=== PATIENT | female | born 1975 | race Hispanic/Latino ===

== ENCOUNTER 2016-05-05 20:28 | Emergency (ER) | payer SELFPAY ==
[2016-05-05 20:48] VITALS: BP 155/112
[2016-05-05] MEDS ORDERED: NORCO 5/325 PO ONE (23:43)
[2016-05-05] MEDS ORDERED: TRIMOX PO ONE (23:44)
--- NOTE | 2016-05-05 23:48 | Emergency Department Report ---
ED ENT HPI - General Chief complaint: Dental/Oral Stated complaint: TOOTHACHE/ARIAS/JAW PAIN Time Seen by Provider: 05/05/16 23:34 Source: patient Mode of arrival: Ambulatory Limitations: No Limitations - History of Present Illness Initial comments: PT c/o toothache x 3 days. PT state due to her gastric bypass and malabsorbtion , she has lots of cavities. Pt states she is getting implants. PT states 3 days ago, she was eating peppermint and he broke off part of her tooth. PT c/o L upper toothache, arias, and ear pain MD complaint: tooth pain Onset/Timin -: Gradual, days(s) Location: tooth # (10 or 11) Quality: stabbing Consistency: constant Worsens with: eating, other (cold air ) Context- Dental: history of dental caries, poor dental care Associated Symptoms: toothache. denies: fever, gum swelling, hearing loss - Related Data Home Medications Medication Instructions Recorded Confirmed Last Taken Calcium Carbonate 650 mg PO DAILY 07/06/13 07/29/13 07/27/13 08:00 Cyanocobalamin (Vitamin B-12) 2,000 mcg SQ Q48H 07/06/13 07/29/13 07/27/13 08:00 [Vitamin B-12] Dicyclomine [Bentyl] 10 mg PO QID 07/06/13 07/29/13 07/27/13 08:00 Esomeprazole Magnesium [Nexium] 40 mg PO QID 07/06/13 07/29/13 07/27/13 08:00 Metoclopramide HCl [Reglan] 10 mg PO 5XD 07/06/13 07/29/13 07/27/13 08:00 Ranitidine HCl [Zantac] 150 mg PO QID 07/06/13 07/29/13 07/27/13 08:00 Sucralfate [Carafate] 1 gm PO AC 07/06/13 07/29/13 07/27/13 08:00 Previous Rx's Medication Instructions Recorded Last Taken Type Amoxicillin 500 mg PO BID #20 capsule 05/05/16 Unknown Rx Chlorhexidine Mouthwash [Peridex] 15 ml MM BID 7 Days 05/05/16 Unknown Rx traMADol [Ultram] 50 mg PO Q6HR PRN #8 tablet 05/05/16 Unknown Rx Allergies Allergy/AdvReac Type Severity Reaction Status Date / Time morphine Allergy Rash Verified 07/29/13 05:59 NSAIDS (Non-Steroidal AdvReac Unknown Verified 07/29/13 05:59 Anti-Inflamma ED Dental HPI - General Chief complaint: Dental/Oral Stated complaint: TOOTHACHE/ARIAS/JAW PAIN Time Seen by Provider: 05/05/16 23:34 Source: patient Mode of arrival: Ambulatory Limitations: No Limitations - Related Data Home Medications Medication Instructions Recorded Confirmed Last Taken Calcium Carbonate 650 mg PO DAILY 07/06/13 07/29/13 07/27/13 08:00 Cyanocobalamin (Vitamin B-12) 2,000 mcg SQ Q48H 07/06/13 07/29/13 07/27/13 08:00 [Vitamin B-12] Dicyclomine [Bentyl] 10 mg PO QID 07/06/13 07/29/13 07/27/13 08:00 Esomeprazole Magnesium [Nexium] 40 mg PO QID 07/06/13 07/29/13 07/27/13 08:00 Metoclopramide HCl [Reglan] 10 mg PO 5XD 07/06/13 07/29/13 07/27/13 08:00 Ranitidine HCl [Zantac] 150 mg PO QID 07/06/13 07/29/13 07/27/13 08:00 Sucralfate [Carafate] 1 gm PO AC 07/06/13 07/29/13 07/27/13 08:00 Previous Rx's Medication Instructions Recorded Last Taken Type Amoxicillin 500 mg PO BID #20 capsule 05/05/16 Unknown Rx Chlorhexidine Mouthwash [Peridex] 15 ml MM BID 7 Days 05/05/16 Unknown Rx traMADol [Ultram] 50 mg PO Q6HR PRN #8 tablet 05/05/16 Unknown Rx Allergies Allergy/AdvReac Type Severity Reaction Status Date / Time morphine Allergy Rash Verified 07/29/13 05:59 NSAIDS (Non-Steroidal AdvReac Unknown Verified 07/29/13 05:59 Anti-Inflamma ED Review of Systems ROS: Stated complaint: TOOTHACHE/ARIAS/JAW PAIN Other details as noted in HPI Comment: All other systems reviewed and negative ENT: ear pain, dental pain, congestion Cardiovascular: other (pt states the pain has her bp elevated ). denies: chest pain Skin: denies: change in color ED Past Medical Hx - Past Medical History Previous Medical History?: Yes Hx Hypertension: No Additional medical history: Staph infection. iron def anemia - Surgical History Past Surgical History?: Yes Hx Cholecystectomy: Yes Additional Surgical History: Gastric bypass, spleenectomy, gastrectomy. abdominal fistula. bowel obstruction sx. scar adhesion sx. hysterectomy - Social History Smoking Status: Current Every Day Smoker Substance Use Type: None - Medications Home Medications: Home Medications Medication Instructions Recorded Confirmed Last Taken Type Calcium Carbonate 650 mg PO DAILY 07/06/13 07/29/13 07/27/13 08:00 History Cyanocobalamin (Vitamin B-12) 2,000 mcg SQ Q48H 07/06/13 07/29/13 07/27/13 08: 00 History [Vitamin B-12] Dicyclomine [Bentyl] 10 mg PO QID 07/06/13 07/29/13 07/27/13 08:00 History Esomeprazole Magnesium [Nexium] 40 mg PO QID 07/06/13 07/29/13 07/27/13 08:00 History Metoclopramide HCl [Reglan] 10 mg PO 5XD 07/06/13 07/29/13 07/27/13 08:00 History Ranitidine HCl [Zantac] 150 mg PO QID 07/06/13 07/29/13 07/27/13 08:00 History Sucralfate [Carafate] 1 gm PO AC 07/06/13 07/29/13 07/27/13 08:00 History Amoxicillin 500 mg PO BID #20 capsule 05/05/16 Unknown Rx Chlorhexidine Mouthwash [Peridex] 15 ml MM BID 7 Days 05/05/16 Unknown Rx traMADol [Ultram] 50 mg PO Q6HR PRN #8 tablet 05/05/16 Unknown Rx ED Physical Exam - General Limitations: No Limitations General appearance: alert, in no apparent distress - Head Head exam: Present: atraumatic, normocephalic - Eye Eye exam: Present: normal appearance. Absent: conjunctival injection - ENT ENT exam: Present: normal orophraynx, mucous membranes moist, other (LTM WNL ) - Expanded ENT Exam Expanded Mouth exam: Present: tongue normal. Absent: drooling, trismus Teeth exam: Present: dental tenderness # (to tooth 10 and 11. large cavity noted to tooth number 10) Throat exam: Positive: normal inspection. Negative: tonsillar erythema - Neck Neck exam: Present: normal inspection. Absent: tenderness, meningismus - Respiratory Respiratory exam: Present: normal lung sounds bilaterally. Absent: respiratory distress - Cardiovascular Cardiovascular Exam: Present: regular rate, normal rhythm - Extremities Exam Extremities exam: Present: normal inspection, full ROM - Back Exam Back exam: Present: normal inspection, full ROM - Neurological Exam Neurological exam: Present: alert, oriented X3 - Psychiatric Psychiatric exam: Present: normal affect, normal mood - Skin Skin exam: Present: warm, dry, intact ED Course Vital Signs 05/05/16 20:44 Temperature 98.1 F Pulse Rate 72 Respiratory 18 Rate Blood Pressure 155/112 [Right] O2 Sat by Pulse 100 Oximetry - Reevaluation(s) Reevaluation #1: 05/05/16 23:50 PT aware she will need to follow up with her Dentist next week. PT states she has appointment 1 week from today. PT aware she will need to follow up with PCP for bp recheck - Pulse Oximetry Interpretation Digit-Finger Initial Pulse Oximetry Readin Actions Taken: none ED Medical Decision Making - Differential Diagnosis toothache, dental decay Critical care attestation.: If time is entered above; I have spent that time in minutes in the direct care of this critically ill patient, excluding procedure time. ED Disposition Clinical Impression: Toothache, Dental decay, Tobacco abuse Disposition: DISCHARGED TO HOME OR SELFCARE Is pt being admited?: No Does the pt Need Aspirin: No Condition: Stable Instructions: How to Stop Smoking (ED), Dental Abscess (ED), Dental Caries (ED) , Toothache (ED) Additional Instructions: No driving or ETOH with Ultram follow up with PCP in 3-5 days for bp recheck Keep your dental appointment next week Referrals: PRIMARY CARE, [Primary Care Provider] - 3-5 Days Forms: Work/School Release Form(ED) Time of Disposition: 23:53
== END 2016-05-06 00:09 | disposition home or self-care (01) ==
LOC: ED 20:28
DX: K02.9 Dental caries, unspecified (principal); D64.9 Anemia, unspecified; F17.200 Nicotine dependence, unspecified, uncomplicated; Z88.6 Allergy status to analgesic agent
CPT/HCPCS: 99282

== ENCOUNTER 2018-03-05 07:02 | Emergency (ER) | payer SELFPAY ==
[2018-03-05 07:40] VITALS: BP 115/72
[2018-03-05] MEDS ORDERED: NORCO 5/325 PO ONE (08:19)
[2018-03-05] MEDS ORDERED: BOOSTRIX IM ONE (08:23)
--- NOTE | 2018-03-05 08:43 | Emergency Department Report ---
HPI - General Chief Complaint: Pain General Time Seen by Provider: 03/05/18 07:53 - HPI HPI: Patient is a 43-year-old female has dislocated, pleasant and presents to ED complaining of left leg abrasion and pain in the past 2 days. 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 She states that she noticed abrasion on her left lower anterior leg. Patient states that she is not up-to-date on her tetanus. ED Past Medical Hx - Past Medical History Hx Hypertension: No Additional medical history: Staph infection. iron def anemia - Surgical History Hx Cholecystectomy: Yes Additional Surgical History: Gastric bypass, spleenectomy, gastrectomy. abdominal fistula. bowel obstruction sx. scar adhesion sx. hysterectomy - Social History Smoking Status: Current Every Day Smoker - Medications Home Medications: Home Medications Medication Instructions Recorded Confirmed Last Taken Type Calcium Carbonate 650 mg PO DAILY 07/06/13 07/29/13 07/27/13 08:00 History Cyanocobalamin (Vitamin B-12) 2,000 mcg SQ Q48H 07/06/13 07/29/13 07/27/13 08:00 History [Vitamin B-12] Dicyclomine [Bentyl] 10 mg PO QID 07/06/13 07/29/13 07/27/13 08:00 History Esomeprazole Magnesium [Nexium] 40 mg PO QID 07/06/13 07/29/13 07/27/13 08:00 History Metoclopramide HCl [Reglan] 10 mg PO 5XD 07/06/13 07/29/13 07/27/13 08:00 History Ranitidine HCl [Zantac] 150 mg PO QID 07/06/13 07/29/13 07/27/13 08:00 History Sucralfate [Carafate] 1 gm PO AC 07/06/13 07/29/13 07/27/13 08:00 History Amoxicillin 500 mg PO BID #20 capsule 05/05/16 Unknown Rx Chlorhexidine Mouthwash [Peridex] 15 ml MM BID 7 Days bottle 05/05/16 Unknown Rx Acetaminophen/Codeine [Tylenol 1 tab PO Q6H PRN #8 tab 03/05/18 Unknown Rx /Codeine # 3 tab] Bacitracin Zinc/Polymyxin B 1 applic TP BID #1 tube 03/05/18 Unknown Rx [Double Antibiotic Ointment] ED Review of Systems ROS: Stated complaint: LEFT LEG INJURY Other details as noted in HPI Comment: All other systems reviewed and negative Physical Exam - Physical Exam Vital Signs: Vital Signs 03/05/18 07:35 Temperature 97.5 F L Pulse Rate 96 H Respiratory 16 Rate Blood Pressure 115/72 O2 Sat by Pulse 98 Oximetry Physical Exam: GENERAL: Alert and oriented x3, no apparent distress, Normal Gait, atraumatic. HEAD: Head is normocephalic and a-traumatic. LUNGS: Symetrical with respiration, No wheezing, no rales or crackles, CTAB. HEART: S1, S2 present, regular rate and rhythm without murmur, no rubs, no gallops. Non tender to palpation EXTREMITIES/MUSCULOSKELETAL: No cyanosis, clubbing, rash, lesions or edema on lower extremities bilaterally. Full ROM bilaterally. Pedal Pulses 2+ bilaterally. LE 5+ strength bilaterally, small, healing abrasion on the anterior lower mendoza. Ankle is nontender to palpation. Palpation of flex and extend both feet bilateral NEUROLOGIC: The patient is cooperative with no focal neurologic deficits. SKIN: Warm and dry, No ulceration or induration present. ED Course Vital Signs 03/05/18 07:35 Temperature 97.5 F L Pulse Rate 96 H Respiratory 16 Rate Blood Pressure 115/72 O2 Sat by Pulse 98 Oximetry ED Medical Decision Making - Medical Decision Making 43-year-old female presents with abrasions to the left leg. Abrasions cleaned, patient received tetanus booster. Discussed acute wound care with the patient. Discussed the follow up with primary care physician. Patient is able to ambulate well without any problems. Vital signs are normal she is in no acute distress Critical care attestation.: If time is entered above; I have spent that time in minutes in the direct care of this critically ill patient, excluding procedure time. ED Disposition Clinical Impression: Abrasion of anterior left lower leg Disposition: DC-01 TO HOME OR SELFCARE Is pt being admited?: No Does the pt Need Aspirin: No Condition: Stable Instructions: Acute Wound Care (ED), Abrasion (ED) Additional Instructions: Make sure to follow up with the primary care physician as discussed. Take all your medications as you've been prescribed. If you have any worsening symptoms or develop new symptoms please return to ED immediately. Prescriptions: Acetaminophen/Codeine [Tylenol /Codeine # 3 tab] 1 tab PO Q6H PRN #8 tab PRN Reason: Pain , Severe (7-10) Bacitracin Zinc/Polymyxin B [Double Antibiotic Ointment] 1 applic TP BID #1 tube Referrals: PRIMARY CARE,MD [Primary Care Provider] - 3-5 Days [facility] [Outside] - 3-5 Days [facility] [Outside] - 3-5 Days [facility] [Outside] - 3-5 Days Forms: Accompanied Note, Work/School Release Form(ED) Time of Disposition: 08:47
== END 2018-03-05 09:28 | disposition home or self-care (01) ==
LOC: ED 07:02
DX: S80.812A Abrasion, left lower leg, initial encounter (principal); F17.200 Nicotine dependence, unspecified, uncomplicated; Z90.49 Acquired absence of other specified parts of digestive tract; Z90.710 Acquired absence of both cervix and uterus; Z88.6 Allergy status to analgesic agent; W19.XXXA Unspecified fall, initial encounter; Y93.89 Activity, other specified; Y92.89 Other specified places as the place of occurrence of the external cause; Y99.8 Other external cause status
CPT/HCPCS: 90471; 90715; 99282

== ENCOUNTER 2018-05-18 08:28 | Emergency (ER) | payer SELFPAY ==
[2018-05-18 08:34] VITALS: BP 139/89
--- NOTE | 2018-05-18 09:52 | Emergency Department Report ---
ED ENT HPI - General Chief complaint: Dental/Oral Stated complaint: TOOTH BROKE OFF Time Seen by Provider: 05/18/18 09:28 Source: patient Mode of arrival: Ambulatory Limitations: No Limitations - History of Present Illness Initial comments: Patient is a 43-year-old female who presents to the ED complaining of a broken tooth that occurred yesterday. Patient also complains of nasal congestion. She denies trauma or injuries. She states that she was eating yesterday when she felt a crack on her tooth. MD complaint: tooth pain, ear pain -: Gradual Severity: moderate Severity scale (0 -10): 6 Quality: aching Improves with: none Worsens with: none Context- Dental: history of dental caries Context- Ear: other Associated Symptoms: denies: pain with swallowing, sore throat - Related Data Home Medications Medication Instructions Recorded Confirmed Last Taken Calcium Carbonate 650 mg PO DAILY 07/06/13 07/29/13 07/27/13 08:00 Cyanocobalamin (Vitamin B-12) 2,000 mcg SQ Q48H 07/06/13 07/29/13 07/27/13 08:00 [Vitamin B-12] Dicyclomine [Bentyl] 10 mg PO QID 07/06/13 07/29/13 07/27/13 08:00 Esomeprazole Magnesium [Nexium] 40 mg PO QID 07/06/13 07/29/13 07/27/13 08:00 Metoclopramide HCl [Reglan] 10 mg PO 5XD 07/06/13 07/29/13 07/27/13 08:00 Ranitidine HCl [Zantac] 150 mg PO QID 07/06/13 07/29/13 07/27/13 08:00 Sucralfate [Carafate] 1 gm PO AC 07/06/13 07/29/13 07/27/13 08:00 Previous Rx's Medication Instructions Recorded Last Taken Type Amoxicillin 500 mg PO BID #20 capsule 05/05/16 Unknown Rx Chlorhexidine Mouthwash [Peridex] 15 ml MM BID 7 Days bottle 05/05/16 Unknown Rx Bacitracin Zinc/Polymyxin B 1 applic TP BID #1 tube 03/05/18 Unknown Rx [Double Antibiotic Ointment] Acetaminophen/Codeine [Tylenol 1 tab PO Q6H PRN #8 tab 05/18/18 Unknown Rx /Codeine # 3 tab] Clindamycin [Clindamycin CAP] 300 mg PO Q8H #15 cap 05/18/18 Unknown Rx Allergies Allergy/AdvReac Type Severity Reaction Status Date / Time morphine Allergy Rash Verified 07/29/13 05:59 NSAIDS (Non-Steroidal AdvReac Unknown Verified 07/29/13 05:59 Anti-Inflamma ED Dental HPI - General Chief complaint: Dental/Oral Stated complaint: TOOTH BROKE OFF Time Seen by Provider: 05/18/18 09:28 Source: patient Mode of arrival: Ambulatory Limitations: No Limitations - Related Data Home Medications Medication Instructions Recorded Confirmed Last Taken Calcium Carbonate 650 mg PO DAILY 07/06/13 07/29/13 07/27/13 08:00 Cyanocobalamin (Vitamin B-12) 2,000 mcg SQ Q48H 07/06/13 07/29/13 07/27/13 08:00 [Vitamin B-12] Dicyclomine [Bentyl] 10 mg PO QID 07/06/13 07/29/13 07/27/13 08:00 Esomeprazole Magnesium [Nexium] 40 mg PO QID 07/06/13 07/29/13 07/27/13 08:00 Metoclopramide HCl [Reglan] 10 mg PO 5XD 07/06/13 07/29/13 07/27/13 08:00 Ranitidine HCl [Zantac] 150 mg PO QID 07/06/13 07/29/13 07/27/13 08:00 Sucralfate [Carafate] 1 gm PO AC 07/06/13 07/29/13 07/27/13 08:00 Previous Rx's Medication Instructions Recorded Last Taken Type Amoxicillin 500 mg PO BID #20 capsule 05/05/16 Unknown Rx Chlorhexidine Mouthwash [Peridex] 15 ml MM BID 7 Days bottle 05/05/16 Unknown Rx Bacitracin Zinc/Polymyxin B 1 applic TP BID #1 tube 03/05/18 Unknown Rx [Double Antibiotic Ointment] Acetaminophen/Codeine [Tylenol 1 tab PO Q6H PRN #8 tab 05/18/18 Unknown Rx /Codeine # 3 tab] Clindamycin [Clindamycin CAP] 300 mg PO Q8H #15 cap 05/18/18 Unknown Rx Allergies Allergy/AdvReac Type Severity Reaction Status Date / Time morphine Allergy Rash Verified 07/29/13 05:59 NSAIDS (Non-Steroidal AdvReac Unknown Verified 07/29/13 05:59 Anti-Inflamma ED Review of Systems ROS: Stated complaint: TOOTH BROKE OFF Other details as noted in HPI Comment: All other systems reviewed and negative ED Past Medical Hx - Past Medical History Previous Medical History?: No Hx Hypertension: No Additional medical history: Staph infection. iron def anemia - Surgical History Past Surgical History?: Yes Hx Cholecystectomy: Yes Additional Surgical History: Gastric bypass, spleenectomy, gastrectomy. abdominal fistula. bowel obstruction sx. scar adhesion sx. hysterectomy - Social History Smoking Status: Current Every Day Smoker Substance Use Type: None - Medications Home Medications: Home Medications Medication Instructions Recorded Confirmed Last Taken Type Calcium Carbonate 650 mg PO DAILY 07/06/13 07/29/13 07/27/13 08:00 History Cyanocobalamin (Vitamin B-12) 2,000 mcg SQ Q48H 07/06/13 07/29/13 07/27/13 08:00 History [Vitamin B-12] Dicyclomine [Bentyl] 10 mg PO QID 07/06/13 07/29/13 07/27/13 08:00 History Esomeprazole Magnesium [Nexium] 40 mg PO QID 07/06/13 07/29/13 07/27/13 08:00 History Metoclopramide HCl [Reglan] 10 mg PO 5XD 07/06/13 07/29/13 07/27/13 08:00 History Ranitidine HCl [Zantac] 150 mg PO QID 07/06/13 07/29/13 07/27/13 08:00 History Sucralfate [Carafate] 1 gm PO AC 07/06/13 07/29/13 07/27/13 08:00 History Amoxicillin 500 mg PO BID #20 capsule 05/05/16 Unknown Rx Chlorhexidine Mouthwash [Peridex] 15 ml MM BID 7 Days bottle 05/05/16 Unknown Rx Bacitracin Zinc/Polymyxin B 1 applic TP BID #1 tube 03/05/18 Unknown Rx [Double Antibiotic Ointment] Acetaminophen/Codeine [Tylenol 1 tab PO Q6H PRN #8 tab 05/18/18 Unknown Rx /Codeine # 3 tab] Clindamycin [Clindamycin CAP] 300 mg PO Q8H #15 cap 05/18/18 Unknown Rx ED Physical Exam - General Limitations: No Limitations General appearance: alert, in no apparent distress - Head Head exam: Present: atraumatic, normocephalic - Eye Eye exam: Present: normal appearance - ENT ENT exam: Present: mucous membranes moist - Neck Neck exam: Present: normal inspection - Respiratory Respiratory exam: Present: normal lung sounds bilaterally. Absent: respiratory distress - Cardiovascular Cardiovascular Exam: Present: regular rate, normal rhythm. Absent: systolic murmur, diastolic murmur, rubs, gallop - GI/Abdominal GI/Abdominal exam: Present: soft, normal bowel sounds - Extremities Exam Extremities exam: Present: normal inspection - Back Exam Back exam: Present: normal inspection - Neurological Exam Neurological exam: Present: alert, oriented X3 - Psychiatric Psychiatric exam: Present: normal affect, normal mood - Skin Skin exam: Present: warm, dry, intact, normal color. Absent: rash ED Course Vital Signs 05/18/18 08:33 Temperature 98.2 F Pulse Rate 95 H Respiratory 16 Rate Blood Pressure 139/89 O2 Sat by Pulse 95 Oximetry ED Medical Decision Making - Medical Decision Making 43-year-old female who presents withpain secondary to odontogenic caries ED course: Odontogenic infection versus ear infection. Based upon history and physical examination, pain is a result of an of avulsion of tooth number 10 Pt has no evidence of acute impending airway compromise. At this point, patient will be discharged home on some antibiotics and pain trial, she will do well with an outpatient course of antibiotics. Follow up with the Dental Clinic as referred Vital signs are normal patient is in no acute distress. Pt had an effect uneventful ED stay Critical care attestation.: If time is entered above; I have spent that time in minutes in the direct care of this critically ill patient, excluding procedure time. ED Disposition Clinical Impression: Dental caries Disposition: DC-01 TO HOME OR SELFCARE Is pt being admited?: No Does the pt Need Aspirin: No Condition: Stable Instructions: Dental Caries (ED), Toothache (ED) Additional Instructions: Make sure to follow up with the primary care physician as discussed. Take all your medications as you've been prescribed. If you have any worsening symptoms or develop new symptoms please return to ED immediately. Prescriptions: Clindamycin [Clindamycin CAP] 300 mg PO Q8H #15 cap Acetaminophen/Codeine [Tylenol /Codeine # 3 tab] 1 tab PO Q6H PRN #8 tab PRN Reason: Pain , Severe (7-10) Referrals: SHANTEL HYLTON MD [Primary Care Provider] - 3-5 Days Forms: Work/School Release Form(ED) Time of Disposition: 10:13
== END 2018-05-18 10:43 | disposition home or self-care (01) ==
LOC: ED 08:28
DX: K02.9 Dental caries, unspecified (principal); F17.200 Nicotine dependence, unspecified, uncomplicated; Z90.49 Acquired absence of other specified parts of digestive tract; Z90.710 Acquired absence of both cervix and uterus; Z79.899 Other long term (current) drug therapy; Z88.6 Allergy status to analgesic agent; Z88.8 Allergy status to other drugs, medicaments and biological substances
CPT/HCPCS: 99282